=== PATIENT | male | born 1985 | race Caucasian/White ===

== ENCOUNTER → 2019-12-17 | Outpatient (CLI) | payer BC ==
--- NOTE | 2019-12-17 16:01 | KCIC ---
EXAMINATION: MRI RIGHT SHOULDER WITHOUT IV CONTRAST CLINICAL HISTORY: RIGHT SHOULDER; Painful ROM, especially overhand. History: Right shoulder injury lifting something heavy about 1 yr ago. TECHNIQUE: Multiplanar multisequential images obtained through the shoulder without intravenous contrast. COMPARISON: None FINDINGS: TENDONS: - Supraspinatus: Mild tendinosis without discrete tear. - Infraspinatus: Small area of low-grade interstitial tearing at the insertion of the posterior fibers with associated tendinosis. - Subscapularis: Within normal limits. - Teres Minor: Within normal limits. - Biceps Tendon: The long head biceps tendon is intact and appropriately located. MUSCLES: Muscle bulk and signal intensity are within normal limits. LABRUM: Posterior inferior labral tear extending from the 7:00-10:00 position. GLENOHUMERAL JOINT: - Joint Fluid: No joint effusion or synovitis. - Cartilage: Within normal limits. ACROMIOCLAVICULAR JOINT: No significant degenerative change. BONES/MARROW: No evidence of acute fracture or suspicious marrow replacing process. Mild chronic reactive changes in the posterior greater tuberosity. OTHER: Mild thickening of the subacromial/subdeltoid bursa. IMPRESSION: Posterior inferior glenoid labrum tear. Mild rotator cuff tendinosis and low-grade interstitial tearing in the infraspinatus tendon. No full-thickness rotator cuff tear. Electronically signed by: Dami Mcknight DO (12/17/2019 3:58 PM) [id number]
== END | disposition home or self-care (01) ==
LOC: KCIC MRI 14:58
PROVIDERS: ATTEND Physician Assistant Medical
DX: S43.421A Sprain of right rotator cuff capsule, initial encounter (principal); M77.8 Other enthesopathies, not elsewhere classified; X58.XXXA Exposure to other specified factors, initial encounter; Y93.89 Activity, other specified; Y92.89 Other specified places as the place of occurrence of the external cause; Y99.8 Other external cause status
CPT/HCPCS: 73221

== ENCOUNTER → 2020-01-16 | Outpatient (CLI) | payer BC ==
[~2020-01-16] MED LIST: 0.9 % SODIUM CHLORIDE 10 ML DISP.SYRIN. ID ONE; ALBU2.5V8 IH; FLUT1DIS IH; GADOTERATE 5 MMOL/10ML VIAL. INT ART ONE; IOHEXOL 300 MG/ML 50 ML VIAL. INT ART ONE; LIDOCAINE 1% Multi-Dose 20 ML VIAL. ID ONE
--- NOTE | 2020-01-16 15:54 | KCIC ---
EXAM: Right shoulder injection WITH Fluoroscopic guidance DATE: 01/16/2020 1:00 PM CLINICAL HISTORY: Reason: Right glenoid labrum tear / Spl. Instructions: 5mL Omni 300,5mL Lidocaine,10ml saline,0.1mL clariscan,7 sec fl, 2 images / History: Pain with throwing motion 1-1.5 yrs. COMPARISON: None pertinent TECHNIQUE: The patient was informed of the indications and alternatives for this procedure as well as risks and benefits. No immediate contraindication identified. The patient provided informed, written consent. Laterality was confirmed by the entire team following a time out. Following initial fluoroscopic localization, a suitable area was sterilely prepped and draped. Local anesthesia was administered with 1% xylocaine. With intermittent fluoroscopic observation, a 22-gauge spinal needle was advanced into the right sheath/capsule with confirmation of intra-synovial position with infusion of less than 1 cc iodinated contrast. Subsequent infusion 12 mL solution containing 10 cc saline, 5 cc lidocaine 1%, 5 cc Isovue and 0.1 cc gadolinium. Hemostasis with local pressure. Local clinical exam negative for immediate complication. Patient informed re local potential signs or symptoms that may indicate need to return to ER/Ordering physician for further evaluation. Patient informed re precautionary measures after intra-synovial injection of anesthetic. Patient expressed understanding. Performing Physicians: Dr. Bartolo Reed Blood Loss: 0 cc Total Fluoroscopy time: 7 seconds Total spot images taken: 0 IMPRESSION: Successful intra-synovial injection right shoulder joint with gadolinium contrast pre-MRI per clinical request. Electronically signed by: Favian Reed MD (01/16/2020 3:52 PM) [id number]
--- NOTE | 2020-01-16 17:35 | KCIC ---
EXAM: MR arthrogram right shoulder DATE: 01/16/2020 2:00 PM COMPARISON: None INDICATION: RIGHT SHOULDER PAIN, Pain with throwing motion 1-1.5 yrs. TECHNIQUE: Multiplanar, multisequence MRI of the right shoulder was performed following administration of intra-articular gadolinium contrast. FINDINGS: Iatrogenic distention of the right glenohumeral joint with gadolinium contrast. Trace subacromial-subdeltoid bursal edema without gadolinium characteristics, bursitis. There is posterior subluxation of the humeral head relative to the glenoid. Mild increased signal within the supraspinatus tendon consistent with tendinosis. No discrete rotator cuff tear is seen. There is mild fatty atrophy and edema of the teres minor muscle belly. Otherwise rotator cuff muscle signal and bulk is normal. Posterior deltoid is grossly normal in signal and morphology although evaluation limited given submitted planes. Extra-articular long head biceps tendon is seen within the bicipital groove. Intra-articular portion is intact, normal in signal and morphology. Anterior-inferior labral tear is seen with fluid cleft at the labral-chondral junction. In addition similar findings are seen throughout the posterior labrum and posterior inferior labrum with associated deformity and diminutive appearance of the posterior/superior labrum. The labrum at the biceps tendon anchor is intact, normal in signal and morphology at this location. Articular cartilage is grossly preserved. No fracture or osteonecrosis. IMPRESSION: 1. Diffuse labral tear, most prominent posterior superiorly with associated labral deformity. Labral tear/partial detachment is also seen at the anterior-inferior labrum. 2. Mild fatty atrophy of the teres minor, nonspecific but may be seen with quadrilateral space syndrome. No obvious quadrilateral space mass. 3. Trace subacromial-subdeltoid bursal edema likely bursitis. 4. Mild increased signal within the supraspinatus tendon likely mild tendinosis. Electronically signed by: Favian Reed MD (01/16/2020 5:32 PM) STEVE
== END ==
LOC: KCIC 12:38
PROVIDERS: ATTEND Physician Assistant
DX: S43.491A Other sprain of right shoulder joint, initial encounter (principal); X58.XXXA Exposure to other specified factors, initial encounter; Y93.89 Activity, other specified; Y92.89 Other specified places as the place of occurrence of the external cause; Y99.8 Other external cause status
CPT/HCPCS: 23350; 73222; 77002; A9575; J3490; Q9967; 73040

== ENCOUNTER → 2020-12-24 | Outpatient (CLI) | payer BC ==
[~2020-12-24] MED LIST changes: -0.9 % SODIUM CHLORIDE 10 ML DISP.SYRIN. ID ONE; +BUPIVACAINE MPF 0.5% 10 ML VIAL. INT ART ONE
--- NOTE | 2020-12-24 15:17 | KCIC ---
DG ARTHROGRAM SHOULDER RIGHT History: Reason: Rt shoulder pain. Surgery to rotator cuff and labrum. / Spl. Instructions: 5mL Omni 300,10mL Saline,5mL Bupivicaine,0.2mL Clariscan,32 sec fl,1 image / History: PROCEDURE: The risks, alternatives, benefits of the procedure discussed with the patient. Written informed cons ent is obtained. A timeout is performed. Skin site was chosen under fluoroscopy. This area is prepped and draped in normal sterile fashion. 1% Lidocaine is used for superficial and deep local anesthesia. Using intermittent fluoroscopy, a 22 -gauge spinal needle is advanced into the joint space. Then a dilute gadolinium solution is instilled , total volume approximately 11 mL. The needle was removed. Hemostasis is achieved. The patient to lerated the procedure well. There is no immediate complication. Patient was transferred to MRI. Fluoroscopy time 32 seconds Fluoroscopic images: 1. IMPRESSION: 1. Fluoroscopically guided right shoulder arthrogram prior to MRI. Electronically signed by: Gamal Serrano DO (12/24/2020 3:15 PM) [id number]
--- NOTE | 2020-12-24 16:28 | KCIC ---
EXAM: MRI arthrogram right shoulder DATE: 12/24/2020 1:51 PM COMPARISON: None INDICATION: Reason: Rt shoulder pain. Surgery to rotator cuff and labrum. / Spl. Instructions: / His tory: Right shoulder pain, probable new injury. Surgery almost 1yr ago. TECHNIQUE: Multiplanar, multisequence MRI arthrogram of the right shoulder was performed following th e administration of intra-articular gadolinium contrast. FINDINGS: Iatrogenic distention of the right glenohumeral joint with gadolinium contrast. Trace subacromial-sub deltoid bursal edema without gadolinium characteristics, bursitis. Mild AC joint degenerative changes are seen. Type II acromion. No os acromiale. Long head biceps tendon is intact. No definite rotator cuff tear is seen. Mild fatty atrophy of the t eres minor. No quadrilateral space mass. Otherwise rotator cuff muscle signal and bulk is normal. Changes of prior labral repair are seen with postsurgical change throughout the glenoid. There is a l ongitudinally the labral chondral junction anterior-inferiorly suspicious for re-tear. Posterior labr um is attenuated, likely postsurgical. Articular cartilage is grossly preserved. No fracture or osteonecrosis. IMPRESSION: 1. Changes of prior labral repair are seen with small fluid cleft at the anterior inferior labral ch ondral junction suspicious for re-tear. Blunting of the posterior labrum likely postsurgical. 2. No rotator cuff tear. 3. Mild fatty atrophy of the teres minor without quadrilateral space mass. Electronically signed by: Favian Reed MD (12/24/2020 4:25 PM) STEVE
== END | disposition home or self-care (01) ==
LOC: KCIC 12:48
PROVIDERS: ATTEND Orthopaedic Surgery
DX: M25.511 Pain in right shoulder (principal); Z79.899 Other long term (current) drug therapy
CPT/HCPCS: 23350; 73222; 77002; A9575; J3490; Q9967

== ENCOUNTER 2021-02-28 09:09 | Day surgery (SDC) | payer BC ==
[~2021-02-28] VITALS: Ht 180.3 cm; Wt 86.0 kg
[~2021-02-28 09:09] MED LIST changes: -BUPIVACAINE MPF 0.5% 10 ML VIAL. INT ART ONE; +EPINEPHrine VIAL 30 MG/30 ML VIAL ONE; -GADOTERATE 5 MMOL/10ML VIAL. INT ART ONE; +HYDROmorphone 2 MG/ML VIAL IVP PRN; -IOHEXOL 300 MG/ML 50 ML VIAL. INT ART ONE; +IV RINGERS,LACTATED 1000ML 1,000 ML IV SCH; -LIDOCAINE 1% Multi-Dose 20 ML VIAL. ID ONE; +MORPHINE SULFATE 2 MG/ML INJ. IVP PRN; +PROCHLORPERAZINE 10 MG/2 ML VIAL. IVP PRN; +fentaNYL PF VIAL 100 MCG/2 ML VIAL IVP PRN
[2021-02-28 09:37] VITALS: BP 145/80
[2021-02-28] MEDS ORDERED: DEXT20TA2 PO (09:47)
[2021-02-28] MEDS ORDERED: TRAZ-123 PO (09:47)
[2021-02-28] MEDS ORDERED: PROPOFOL 10 MG/ML (20ML) VIAL. IV ONE (10:04)
[2021-02-28] MEDS ORDERED: ONDANSETRON PF 4 MG/2 ML VIAL. ONE (10:05)
[2021-02-28] MEDS ORDERED: ROCURONIUM 50 MG/5 ML VIAL. ONE (10:05)
[2021-02-28] MEDS ORDERED: DEXAMETHASONE SOD PHOS 4 MG/ML VIAL ONE (10:05)
[2021-02-28] MEDS ORDERED: MIDAZOLAM HCL/PF 2 MG/2 ML VIAL. ONE (10:18)
[2021-02-28] MEDS ORDERED: ROPIVacaine 0.5% PF 20 ML VIAL. ONE (10:18)
[2021-02-28] MEDS ORDERED: LIDOCAINE 1% PF 2 ML VIAL. ONE (10:18)
[2021-02-28] MEDS ORDERED: DEXAMETHASONE SOD PHOS 20 MG/5 ML VIAL. ONE (10:18)
[2021-02-28] MEDS ORDERED: OXYC20TA PO (11:08)
--- NOTE | 2021-02-28 11:12 | DISCH ---
DISCHARGE INSTRUCTIONS Condition on Discharge Condition on Discharge: Stable Activity After Discharge Activity Instructions for Disc: Avoid exertion Driving Instructions after Dis: Do not drive today Wound Incision Care Wound/Incision Care: Ice to area for comfort Other wound/incision instructi: May change dressings postoperative day #3 Follow-Up Follow up with: 10 to 14 days KIRBY YAÑEZ Jr. DO Feb 28, 2021 11:12
[2021-02-28] MEDS ORDERED: fentaNYL PF VIAL 100 MCG/2 ML VIAL ONE (12:19)
[2021-02-28] MEDS ORDERED: GLYCOPYRROLATE 1 MG/5 ML VIAL. ONE (12:29)
[2021-02-28] MEDS ORDERED: NEOSTIGMINE METHYLSULFATE 5 MG/5 ML SYRINGE. ONE (12:30)
--- NOTE | 2021-02-28 12:38 | PDOC4 ---
OPERATIVE NOTE Date: Date: Feb 28, 2021 Pre-Op Diagnosis: Labral tear right shoulder with impingement possible AC arthrosis Post-Op Diagnosis: Impingement right shoulder with fraying tear right labrum Procedure Performed: Right shoulder arthroscopy with subacromial decompression release CA ligament bursectomy labral debridement Surgeon: [place] Anesthesia Type: General Blood Loss: 30 cc Specimans Obtained: None Findings: See dictation Complications: None KIRBY YAÑEZ Jr. DO Feb 28, 2021 12:38
--- NOTE | 2021-02-28 13:03 | OP ---
DATE OF SURGERY: 02/28/2021 PREOPERATIVE DIAGNOSIS: Tear, possible retear of labrum, right shoulder. POSTOPERATIVE DIAGNOSIS: Impingement with small tear of labrum, right shoulder. PROCEDURES: Right shoulder arthroscopy with labral debridement, subacromial decompression, bursectomy, release CA ligament. SURGEON: Gael Quinn DO TONSORIAL ARTIST: Dion Kenney MD ANESTHESIA: General. COMPLICATIONS: None. ESTIMATED BLOOD LOSS: 30 mL DESCRIPTION OF PROCEDURE: The patient was taken to the operative suite, placed in a beach chair position. I also need to put manipulation under anesthesia. Forward elevation was taken from 150 up to 175, abduction was taken from 130-160, external rotation was improved by 10 degrees at 55 degrees versus 40-45. Internal rotation was to PSIS. Right shoulder was then prepped and draped in sterile fashion. Standard posterior portal was established. The glenohumeral joint was visualized. The repair of the labrum was noted to be intact. There was peripheral fraying and tearing and there was some small tearing of the labrum approximately the 3 o'clock to the 5 o'clock position; however, this was not detached from the glenoid itself. This was then debrided along the periphery and probing of the entire labral tissue revealed this to be intact. No loose bodies in the pouch were noted. Biceps tendon was intact and the undersurface of the rotator cuff was intact. The scope was then taken into the subacromial region. There was an extremely large anterior osteophyte with significant downsloping of the anterior acromion. Therefore, subacromial decompression was performed and release of the CA ligament was done as well. AC joint actually also looked very good without any significant pathology. Therefore, after bursectomy was completed, the rotator cuff was evaluated and noted to be intact. This was then thoroughly irrigated. All instruments were removed. Wounds were reapproximated after local was placed. Sterile dressing was applied. The patient was then taken from the operative bed to the postoperative bed, taken to the PACU in stable condition. AALIYAH BORRERO: Kathy TID: [id number]
[2021-02-28] MEDS ORDERED: oxyCODONE IR 5 MG TABLET PO ONE (14:00)
[2021-02-28] MEDS ORDERED: IPRATRPIUM/ALBUTEROL 0.5/2.5MG 3 ML NEBU. ONE (14:01)
[2021-02-28] MEDS ORDERED: IPRATRPIUM/ALBUTEROL 0.5/2.5MG 3 ML NEBU. NEB ONE (14:15)
[2021-02-28 14:32] VITALS: BP 131/71
[2021-02-28] MEDS ORDERED: OXYC5CAP PO (14:35)
--- NOTE | 2021-02-28 14:38 | DISCH ---
DISCHARGE INSTRUCTIONS Condition on Discharge Condition on Discharge: Stable Activity After Discharge Activity Instructions for Disc: Avoid exertion Driving Instructions after Dis: Do not drive today, No driving for 2 weeks Wound Incision Care Wound/Incision Care: Ice to area for comfort, Change dressing Other wound/incision instructi: May change dressings postoperative day #3 Follow-Up Follow up with: 10 to 14 days KIRBY YAÑEZ Jr. DO Feb 28, 2021 14:38
== END 2021-02-28 14:59 | disposition home or self-care (01) ==
LOC: SURG 09:09
PROVIDERS: ATTEND Orthopaedic Surgery
DX: S43.401A Unspecified sprain of right shoulder joint, initial encounter (principal); S43.431A Superior glenoid labrum lesion of right shoulder, initial encounter; J45.909 Unspecified asthma, uncomplicated; G47.30 Sleep apnea, unspecified; Z79.899 Other long term (current) drug therapy; Z98.890 Other specified postprocedural states; X58.XXXA Exposure to other specified factors, initial encounter; Y93.89 Activity, other specified; Y92.89 Other specified places as the place of occurrence of the external cause; Y99.8 Other external cause status
CPT/HCPCS: 29822; 29826; A4930; J0171; J0690; J1100; J2250; J2405; J2704; J2710; J2795; J3010; J3490; A4452